=== PATIENT | male | born 1980 | race Two or more races ===

== ENCOUNTER 2019-12-18 11:43 | Emergency (ER) | payer OTHER ==
[~2019-12-18] VITALS: Ht 170.2 cm; Wt 104.3 kg
[2019-12-18 12:13] VITALS: BP 131/94
[2019-12-18] MEDS ORDERED: ACETAMINOPHEN 500 MG TAB PO ONE (14:15)
== END 2019-12-18 14:51 | disposition home or self-care (01) ==
LOC: ER 11:43
DX: S01.01XA Laceration without foreign body of scalp, initial encounter (principal); S63.592A Other specified sprain of left wrist, initial encounter; I10 Essential (primary) hypertension; W18.09XA Striking against other object with subsequent fall, initial encounter; Y93.89 Activity, other specified; Y92.89 Other specified places as the place of occurrence of the external cause; Y99.8 Other external cause status
CPT/HCPCS: 12002; 73130